=== PATIENT | male | born 1950 | race Caucasian/White ===

== ENCOUNTER 2017-05-16 13:14 | Emergency (ER) | payer MEDICARE ==
[~2017-05-16] VITALS: Ht 175.3 cm; Wt 136.2 kg
[~2017-05-16 13:14] MED LIST: ASPI325T PO; BACT800T5 PO; CARD4TAB2 PO; DIOV320T PO; PYRI100T4 PO; SIMV20 PO; TAB-TAB PO; VITA10002 PO; VITA400C28 PO; VITA400C70 PO; [UNRECOGNIZED DRUG - CODE] PO
[2017-05-16 13:15] VITALS: BP 153/73; PULSE 81; RESP 20; TEMP 97.7; O2SAT 95
[2017-05-16] MEDS ORDERED: SIMV20TA PO (13:54)
[2017-05-16] MEDS ORDERED: MAXZTAB PO (13:54)
[2017-05-16] MEDS ORDERED: ASPI-183 PO (13:54)
[2017-05-16] MEDS ORDERED: DICL75TA PO (13:54)
[2017-05-16] MEDS ORDERED: FINA5TAB2 PO (13:54)
[2017-05-16] MEDS ORDERED: VALS1TAB70 PO (13:54)
[2017-05-16] MEDS ORDERED: DOXA1TAB34 PO (13:54)
--- NOTE | 2017-05-16 14:13 | PD ---
HPI Chief Complaint: Skin Problem Time Seen by Provider: 13:53 Travel History International Travel<30 days: No Contact w/Intl Traveler<30days: No Traveled to known affect area: No History of Present Illness HPI 67-year-old male presents to the ED for evaluation of four-day history of blistering rash of the left back and abdomen. He states that the rashes become painful overnight. Pain is rated 7/10, described as burning. No alleviating factors reported. He denies known injury to the area, fever, chills, nausea, vomiting. He received the shingles vaccine approximate 5 years ago. He endorses childhood history of chickenpox. No treatment attempted at home. PFSH Past Medical History Hx Anticoagulant Therapy: Yes (ASA) Cardiac Catheterization: Yes Cardiovascular Problems: Yes High Cholesterol: Yes Coronary Artery Disease: Yes Diminished Hearing: No Hypertension: Yes Past Surgical History Appendectomy: Yes Coronary Stent: Yes (dec 2009) Joint Replacement: Yes (LEFT KNEE) Tonsillectomy: Yes Other Surgery: Yes (pilonidal cyst) Social History Alcohol Use: Yes (wine daily) Tobacco Use: No (quit 28 years ago) Substance Use: No Allergies-Medications (Allergen,Severity, Reaction): Coded Allergies: No Known Allergies (Verified Adverse Reaction, Unknown, 05/16/17) Reported Meds & Prescriptions Reported Meds & Active Scripts Active Tramadol (Tramadol HCl) 50 Mg Tab 50 Mg PO Q6H PRN Acyclovir 800 Mg Tab 800 Mg PO 5 TIMES A DAY 10 Days Reported Doxazosin (Doxazosin Mesylate) 4 Mg Tab 4 Mg PO DAILY Aspirin 325 Mg Tab 325 Mg PO DAILY Maxzide-25 (Triamterene-Hydrochlorothiazide) 37.5-25 Mg Tab 1 Tab PO DAILY Finasteride 5 Mg Tab 5 Mg PO DAILY Do not crush. Diclofenac Sodium DR (Diclofenac Sodium) 75 Mg Tabdr 75 Mg PO DAILY Simvastatin 20 Mg Tab 20 Mg PO HS Valsartan 320 Mg Tab 320 Mg PO DAILY Review of Systems Except as stated in HPI: all other systems reviewed are Neg Physical Exam Narrative GENERAL: Well-nourished, well-developed obese white male in no acute distress. SKIN: Focused skin assessment warm/dry. Patchy, erythematous, nonblanching, vesicular rash distributed in the T6 or T7 dermatome area. Consistent with shingles HEAD: Normocephalic. EYES: No scleral icterus. No injection or drainage. NECK: Supple, trachea midline. No JVD or lymphadenopathy. CARDIOVASCULAR: Regular rate and rhythm without murmurs, gallops, or rubs. RESPIRATORY: Breath sounds equal bilaterally. No accessory muscle use. GASTROINTESTINAL: Abdomen soft, non-tender, nondistended. MUSCULOSKELETAL: No cyanosis, or edema. BACK: Nontender without obvious deformity. No CVA tenderness. Data Data Last Documented VS Vital Signs Date Time Temp Pulse Resp B/P (MAP) Pulse Ox O2 Delivery O2 Flow Rate FiO2 05/16/17 13:15 97.7 81 20 153/73 (99) 95 Orders Orders Ed Discharge Order (05/16/17 14:14) MDM Medical Decision Making Medical Screen Exam Complete: Yes Emergency Medical Condition: Yes Differential Diagnosis Herpes zoster versus shingles versus staph infection versus other Narrative Course 67-year-old male presents to the ED for evaluation of four-day history of blistering rash of the left back and abdomen. He states that the became painful overnight, described as burning, rated 7/10. He received the shingles vaccine approximate 5 years ago. He endorses childhood history of chickenpox. Vital is reviewed. Physical exam consistent with herpes zoster of the T6 or 7 dermatome distribution. Patient's prescribed acyclovir 5 times a day 10 days and a few doses of tramadol for pain. He is provided detailed care instructions. We discussed reasons to return to the ED. Patient indicated understanding of instructions. He is stable and discharged home. Diagnosis Primary Impression: Shingles outbreak Qualified Codes: B02.9 - Zoster without complications Referrals: Primary Care Physician Patient Instructions: General Instructions, Shingles (ED) Additional Instructions: Keep the rash clean, dry and covered. As long as you have blisters others in the area may contract shingles. Take acyclovir 5 times a day as prescribed. Follow-up with primary care provider. Return to the ED for any urgent or emergent medical condition. Med/Other Pt SpecificInfo: Prescription(s) given Scripts Tramadol (Tramadol) 50 Mg Tab 50 MG PO Q6H Y for PAIN, #12 TAB 0 Refills Prov: Costa Jimenez MD 05/16/17 Acyclovir (Acyclovir) 800 Mg Tab 800 MG PO 5 TIMES A DAY for Mgmt Viral Infection for 10 Days, TAB 0 Refills Prov: Costa Jimenez MD 05/16/17 Disposition: 01 DISCHARGE HOME Condition: Stable Yany La May 16, 2017 14:13
[2017-05-16] MEDS ORDERED: ACYC800T PO (14:14)
[2017-05-16] MEDS ORDERED: TRAM50TA PO (14:20)
== END 2017-05-16 14:51 | disposition home or self-care (01) ==
LOC: PHED 13:14 → PHEFT 14:51
DX: B02.9 Zoster without complications (principal); E78.00 Pure hypercholesterolemia, unspecified; I25.10 Atherosclerotic heart disease of native coronary artery without angina pectoris; I10 Essential (primary) hypertension
CPT/HCPCS: 99284